=== PATIENT | male | born 1945 | race Caucasian/White ===

== ENCOUNTER → 2020-03-29 | Outpatient (CLI) | payer MEDICARE, OTHER ==
--- NOTE | 2020-03-29 13:14 | RADIOLOGY REPORT (SQ) ---
EXAM DESCRIPTION: BARIUM SWALLOW ESOPHAGUS IMAGES COMPLETED DATE/TIME: 03/29/2020 9:51 am REASON FOR STUDY: R13.14 DYSPHAGIA, PHARYNGOESOPHAGEAL PHASE R13.14 DYSPHAGIA, PHARYNGOESOPHAGEAL P HASE COMPARISON: None. TECHNIQUE: Under fluoroscopic guidance, patient ingested effervescent granules followed by thick and thin barium. Fluoroscopic spot images and routine radiographic images acquired and stored on PACS. 12 MM BARIUM TABLET GIVEN: Yes. Momentary delay in passage of the tablet at the GE junction LIMITATIONS: None. FLUOROSCOPY TIME: FLUORO TIME: 1.6 minutes of fluoroscopy was used. 13 images saved to PACS. FINDINGS: NEUROMUSCULAR COORDINATION OF SWALLOW: Trace laryngeal penetration. No aspiration. Mild c ricopharyngeal hypertrophy. ESOPHAGEAL MOTILITY: Normal peristalsis. No esophageal spasm. ESOPHAGEAL MUCOSA: Normal mucosa without masses or ulceration. GASTRO-ESOPHAGEAL JUNCTION: Small sliding hiatal hernia with Schatzki's ring formation. Moderate katie e-flowing gastroesophageal reflux. Mild Daria delay in passage of 12 mm barium tablet caused by the Schatzki's ring. NON-GI TRACT STRUCTURES: No significant finding. OTHER: No other significant finding. IMPRESSION: 1. SMALL SLIDING HIATAL HERNIA WITH SCHATZKI'S RING FORMATION THAT DOES MOMENTARILY DEL AYED PASSAGE OF THE TABLET. MODERATE FREE-FLOWING GASTROESOPHAGEAL REFLUX. 2. MILD CRICOPHARYNGEAL HYPERTROPHY COMMENT: Quality ID [id number]: Final reports for procedures using fluoroscopy that document radiation exp osure indices, or exposure time and number of fluorographic images (if radiation exposure indices are not available) TECHNICAL DOCUMENTATION: JOB ID: [id number] 2010 [employer]- All Rights Reserved Reading location - IP/workstation name: [email or web address]
== END ==
LOC: RAD 09:08
PROVIDERS: ATTEND Physician Assistant
DX: R13.14 Dysphagia, pharyngoesophageal phase (principal)
CPT/HCPCS: 74220